=== PATIENT | male | born 1980 | race Caucasian/White ===

== ENCOUNTER 2017-03-28 12:28 | Emergency (ER) | payer OTHER ==
[2017-03-28 13:26] LABS: BASOPHIL 0.4 % (0-2); EOSINOPHIL 3.7 % (0-5); HCT 43.3 % (42.0-52.0); HGB 14.9 g/dl (13.2-18.0); LYMPHOCYTE 17.2 % (15-48); MCHC 34.4 g/dL (32.0-36.0); MCV 87.1 fL (78.0-100.0); MONOCYTE 10.1 % (0-12); MPV 11.1 fL (6.0-9.5); NEUTROPHIL 68.6 % (41-80); PLT 179 K/uL (150-400); RBC 4.97 M/uL (4.70-6.00); RDW 12.7 % (11.5-14.0); WBC 5.1 K/uL (4.0-10.5)
== END 2017-03-28 16:21 | disposition home or self-care (01) ==
LOC: FER 12:28
PROVIDERS: Nurse Practitioner
DX: K22.2 Esophageal obstruction (principal); R09.89 Other specified symptoms and signs involving the circulatory and respiratory systems; Z88.6 Allergy status to analgesic agent
CPT/HCPCS: 36415; 70360; 74220; 85025; J0500